=== PATIENT | male | born 1975 | race Hispanic/Latino ===

== ENCOUNTER 2017-06-10 19:23 | Outpatient (CLI) | payer SELFPAY ==
[2017-06-11 17:34] LABS: Microalbumin-Urine Less than 1.0 mg/dL
== END 2017-06-10 19:24 | disposition home or self-care (01) ==
LOC: MADLABSP 19:23
PROVIDERS: ATTEND Family Medicine
DX: R80.9 Proteinuria, unspecified (principal); E11.65 Type 2 diabetes mellitus with hyperglycemia
CPT/HCPCS: 82043

== ENCOUNTER 2017-09-10 08:01 | Outpatient (CLI) | payer SELFPAY ==
--- NOTE | 2017-09-10 09:17 | ULT ---
ULTRASOUND ABDOMEN LIMITED: (RIGHT UPPER QUADRANT) 09/10/2017 HISTORY: A 42-year-old male with elevated liver enzymes. FINDINGS: Because of body habitus, there is poor visualization of intraabdominal contents, especially the major ity of the liver. The right lobe of the liver essentially is not visible because of this. The left lobe of the liver has increased echogenicity suggestive of fatty liver. The pancreas is partially ob scured by shadowing from bowel gas. The common duct caliber is 5 mm. Although there is no gallbladd er wall thickening, there is an approximately 26 mm hyperechoic structure at the fundus of the gallbl adder, causing strong posterior acoustic shadowing. There is tenderness over the gallbladder during scanning. Gallbladder wall thickness appears normal elsewhere. There is no hydronephrosis of the ri ght kidney. IMPRESSION: 1. An unusual finding of apparent 26 mm calculus lodged at the gallbladder fundus. Alternatively, th is appearance could represent a partially porcelain gallbladder. A CT of the abdomen would be able t o determine whether or not there is a partially porcelain gallbladder. Gallstone is favored. 2. Poor visualization of intraabdominal contents due to body habitus. EMERY Avila POS: [facility]
== END 2017-09-10 08:02 | disposition home or self-care (01) ==
LOC: MADULT 08:01
PROVIDERS: ATTEND Family Medicine
DX: R74.0 Nonspecific elevation of levels of transaminase and lactic acid dehydrogenase [LDH] (principal); K80.20 Calculus of gallbladder without cholecystitis without obstruction
CPT/HCPCS: 76705

== ENCOUNTER 2017-09-18 09:56 | Outpatient (CLI) | payer OTHER ==
[2017-09-18] MEDS ORDERED: Iopamidol 370 76% 100 ML VIAL ONE (10:31)
--- NOTE | 2017-09-18 14:00 | CT ---
CT OF THE ABDOMEN WITH IV CONTRAST: Date: 09-18-17 Provided Clinical History: Abnormal ultrasound. FINDINGS: The visualized lung bases are free of significant opacity. There is diffuse fatty infiltration of the liver. The spleen, pancreas, kidneys and adrenal glands ap pear unremarkable. There is a large calcified gallstones at the fundus of the gallbladder. This measures about 3 cm. The re is no evidence for calcification of the gallbladder wall to suggest a porcelain gallbladder. There is no bowel dilatation, inflammatory fat stranding, free fluid or lymph node enlargement appare nt. The osseous structures demonstrate no concerning osteoblastic or osteolytic lesions. There is nonspecific articulation of the subcutaneous adipose layer involving the anterior abdominal wall to the right of midline, slightly cranial to the level of the umbilicus, which could reflect devin nges of cellulitis. Please correlate clinically. IMPRESSION: 1. Large gallstone involves the fundus of the gallbladder. There is no evidence for porcelain gallbla dder. 2. Fatty infiltration of the liver. 3. Minimal nonspecific reticulation involving the subcutaneous adipose layer of the anterior abdomina l wall to the right of midline just above the level of the umbilicus. This could reflect bruising or nonspecific edema. Please correlate clinically. POS: [facility]
== END 2017-09-18 09:57 | disposition home or self-care (01) ==
LOC: MADCT 09:56
PROVIDERS: ATTEND Family Medicine
DX: R93.5 Abnormal findings on diagnostic imaging of other abdominal regions, including retroperitoneum (principal); K80.20 Calculus of gallbladder without cholecystitis without obstruction; K76.0 Fatty (change of) liver, not elsewhere classified
CPT/HCPCS: 74160

== ENCOUNTER 2018-05-20 00:55 | Emergency (ER) | payer SELFPAY ==
--- NOTE | 2018-05-20 08:19 | RAD ---
CHEST 1 VIEW: Date: 05/20/18 HISTORY: Dyspnea. COMPARISON: None. FINDINGS: Lungs without focal air space consolidation, pneumothorax, or effusion. Cardiac silhouette and medias tinal contours are normal for portable technique and poor inspiration. No acute osseous abnormality. IMPRESSION: No acute intrathoracic abnormality. POS: [facility]
== END 2018-05-20 01:58 | disposition home or self-care (01) ==
LOC: MADERS 00:55
DX: G47.30 Sleep apnea, unspecified (principal); I10 Essential (primary) hypertension; E11.9 Type 2 diabetes mellitus without complications; Z79.84 Long term (current) use of oral hypoglycemic drugs; Z79.899 Other long term (current) drug therapy
CPT/HCPCS: 36416; 71045

== ENCOUNTER 2019-09-22 08:28 | Emergency (ER) | payer OTHER, SELFPAY ==
[2019-09-22] MEDS ORDERED: Aspirin Chewable 81 MG TAB ONE (09:02)
[2019-09-22 09:13] LABS: #Basophils 0.1 thou/uL (0.0-0.2); #Eosinphils 0.5 thou/uL (0.0-0.7); #Lymphocytes 2.4 thou/uL (1.20-3.40); #Monocytes 0.5 thou/uL (0.11-0.59); #Neutrophils 7.7 thou/uL (1.40-6.50); %Basophils 0.6 % (0.0-1.0); %Eosinophils 4.3 % (0.0-10.0); %Lymphocytes 21.3 % (21.0-51.0); %Monocytes 4.8 % (0.0-10.0); Hemoglobin 14.9 g/dL (14.0-18.0); Mean Corpuscular HGB CONC 30.9 g/dL (32.0-36.0); Mean Corpuscular Hemoglobin 27.9 pg (27.0-31.0); Mean Corpuscular Volume 90.5 fL (78.0-98.0); Mean Platelet Volume 8.2 fL (7.4-10.4); Platelet Count 237 thou/uL (130-400); RBC Distribution Width 11.7 % (11.5-14.5); Red Blood Cell (RBC) Count 5.33 mill/uL (4.70-6.10); White Blood Cell (WBC) Count 11.1 thou/uL (4.8-10.8)
--- NOTE | 2019-09-22 09:21 | RAD ---
XR Chest Pa Lat STANDARD HISTORY: Dyspnea COMPARISON: 09/11/2019 FINDINGS: The heart size is normal. The lungs are well expanded without focal areas of consolidation, pneumothorax or pleural effusions. IMPRESSION: No radiographic evidence of acute cardiopulmonary process.
[2019-09-22 09:24] LABS: Chloride 99 mmol/L (98-107); Potassium 3.8 mmol/L (3.5-5.1); Sodium 139 mmol/L (136-145)
[2019-09-22 09:42] LABS: ALT (SGPT) 108 U/L (8-55); AST (SGOT) 40 U/L (5-34); Alkaline Phosphatase 71 U/L (40-110); Anion Gap 16 mmol/L (10-20); BUN (Urea Nitrogen) 9 mg/dL (8.9-20.6); Bilirubin, Total 0.3 mg/dL (0.2-1.2); Calc. Creatinine Clearance 0 mL/min (70-130); Carbon Dioxide 28 mmol/L (22-29); Estimated GFR-MDRD Greater than 90; Globulin 2.3 g/dL (2.4-3.5); Glucose 225 mg/dL (70-105); Protein, Total 6.4 g/dL (6.0-8.3)
[2019-09-22] MEDS ORDERED: Enoxaparin Sodium 80 MG/0.8 ML SYRINGE ONE (10:08)
[2019-09-22] MEDS ORDERED: Enoxaparin Sodium 60 MG/0.6 ML SYRINGE ONE (10:08)
[2019-09-22 10:15] LABS: CKMB 1.1 ng/mL (0-6.6)
== END 2019-09-22 11:09 | disposition short-term general hospital (02) ==
LOC: MADERS 08:28
DX: I21.4 Non-ST elevation (NSTEMI) myocardial infarction (principal); E11.9 Type 2 diabetes mellitus without complications; I10 Essential (primary) hypertension; E66.9 Obesity, unspecified; Z79.899 Other long term (current) drug therapy; Z79.84 Long term (current) use of oral hypoglycemic drugs
CPT/HCPCS: 71046; 80053; 82553; 83880; 84484; 85025; 93005; 96372; J1650

== ENCOUNTER 2022-02-11 14:38 | Emergency (ER) | payer SELFPAY ==
[2022-02-11 16:28] LABS: Bilirubin Negative (Negative); Blood, Urine Large (Negative); Glucose, Urine (Dipstick) Negative (Negative); Ketone, Urine Negative (Negative); Leukocyte Small (Negative); Nitrite Positive (Negative); Protein, Urine (Dipstick) 100 mg/dL (Neg-Trace); Specific Gravity, Urine 1.025 (1.005-1.030); Urobilinogen 0.2 mg/dL (Less than 2); pH, Urine 5.5 (5.0-9.0)
[2022-02-11 16:29] LABS: Clarity Cloudy (Clear)
[2022-02-11 16:35] LABS: RBC/HPF Greater than 50 HPF (0-3)
[2022-02-11 16:41] LABS: Bacteria/HPF 2+ HPF (None Seen); Squamous Epithelial 0-3 HPF (0-3)
[2022-02-11 16:42] LABS: Mucous/LPF 2+ LPF (<2+)
[2022-02-11] MEDS ORDERED: Ciprofloxacin 500 MG TAB ONE (18:25)
[2022-02-12 16:55] LABS: Chlam.trachomatis by PCR,Urine Not Detected (NotDetected)
== END 2022-02-11 18:32 | disposition home or self-care (01) ==
LOC: MADERS 14:38
DX: N30.00 Acute cystitis without hematuria (principal); G47.30 Sleep apnea, unspecified; I10 Essential (primary) hypertension; E11.9 Type 2 diabetes mellitus without complications; Z79.84 Long term (current) use of oral hypoglycemic drugs; Z79.899 Other long term (current) drug therapy
CPT/HCPCS: 81003; 81015; 87491; 87591; 99284